=== PATIENT | female | born 1945 | race Caucasian/White ===

== ENCOUNTER 2020-03-19 08:03 | Emergency (ER) | payer MEDICARE, OTHER ==
[~2020-03-19] VITALS: Ht 177.8 cm; Wt 104.8 kg
[2020-03-19] MEDS ORDERED: CYMBALTA20 MG PO (08:23)
[2020-03-19] MEDS ORDERED: CLONAZEPAM 0.50.5 M1 PO (08:24)
[2020-03-19 08:34] LABS: URINE BILIRUBIN NEGATIVE (Negative); URINE BLOOD NEGATIVE (Negative); URINE CLARITY CLEAR; URINE COLOR YELLOW; URINE GLUCOSE-RANDOM 2+ (Negative); URINE KETONES NEGATIVE (Negative); URINE LEUKOCYTES-REFLEX NEGATIVE (Negative); URINE NITRITE-REFLEX NEGATIVE (Negative); URINE PROTEIN TRACE (Negative); URINE SPECIFIC GRAVITY 1.025 (1.005-1.030)
[2020-03-19 09:10] LABS: HEMATOCRIT 43.7 % (37.0-47.0); HEMOGLOBIN 14.5 gm/dL (12.0-15.0); MCH 26.9 pg (26.0-34.0); MCHC 33.3 g/dL (28.0-37.0); MCV 80.8 fL (80.0-100.0); MPV 8.8 fl. (7.2-11.1); RBC 5.4 mil/uL (4.20-5.00); RDW-CV 13.9 % (10.5-14.5)
[2020-03-19 09:24] LABS: CALCIUM 8.3 mg/dL (8.5-10.1); POTASSIUM 3.9 mmol/L (3.5-5.1)
[2020-03-19 09:28] LABS: TOTAL BILIRUBIN 0.3 mg/dL (<0.1-1.0); TOTAL PROTEIN 6.4 g/dL (6.4-8.2)
[2020-03-19] MEDS ORDERED: IBUPROFEN 800800 M1 PO (09:38)
[2020-03-19] MEDS ORDERED: KEFLEX500 M1 PO (09:38)
[2020-03-19 09:55] VITALS: BP 159/77
--- NOTE | 2020-03-21 08:55 | EKG ---
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: Aishwarya : 1945 Requested By: Laureano Mcintosh Order Number: [id number] MD: Dave Sánchez Measurements Intervals [place] Rate: 70 P: -31 [place]: 148 QRS: -18 QRSD: 104 T: 129 QT: 446 QTc: 482 Interpretive Statements Sinus rhythm Multiple ventricular premature complexes Abnormal R-wave progression, late transition LVH with secondary repolarization abnormality Borderline prolonged QT interval No previous ECG available for comparison Electronically Signed On 03-21-2020 8:55:10 DRAWBENCH OPERATOR by Dave Sánchez [email or web address] <ELECTRONICALLY SIGNED> By: Charles Sánchez MD, [facility] 03/21/20 0855 Charles Sánchez MD, [facility] /EPI
== END 2020-03-19 09:55 | disposition home or self-care (01) ==
LOC: M.ERS 08:03
PROVIDERS: Emergency Medicine Emergency Medical Services
DX: M19.041 Primary osteoarthritis, right hand (principal); N39.0 Urinary tract infection, site not specified; R05 Cough; I10 Essential (primary) hypertension; E11.9 Type 2 diabetes mellitus without complications; Z79.899 Other long term (current) drug therapy